=== PATIENT | female | born 1985 | race Caucasian/White ===

== ENCOUNTER 2021-12-15 18:47 | Emergency (ER) | payer OTHER ==
[~2021-12-15] VITALS: Ht 160 cm; Wt 72.6 kg
[~2021-12-15 18:47] MED LIST: CELEBREX100 MG PO; KETO10TA2 PO; SKELAXIN800 MG PO
[2021-12-15] MEDS ORDERED: PRENA1 TRUE CO1 EACH PO (21:50)
== END 2021-12-15 22:11 | disposition home or self-care (01) ==
LOC: ER 18:47
DX: O26.891 Other specified pregnancy related conditions, first trimester (principal); Z3A.01 Less than 8 weeks gestation of pregnancy; R10.2 Pelvic and perineal pain